=== PATIENT | male | born 1990 | race Caucasian/White ===

== ENCOUNTER 2016-07-04 15:40 | Emergency (ER) | payer SELFPAY ==
[2016-07-04 15:50] VITALS: BMI 22.3
--- NOTE | 2016-07-04 16:32 | EDPRACDOC ---
- General Chief Complaint: Fall Stated Complaint: LACERATION Time Seen by Provider: 07/04/16 16:06 Information Source: Patient - History of Present Illness Onset: 2 days HPI: PT PRESENTS TODAY WITH LEFT CHEST WALL PAIN AND LEFT HIP PAIN AFTER MECHANICAL FALL 2 DAYS AGO. WAS PUTTING UP A SHELF AND FELL BACKWARDS OFF LADDER ABOUT 3 FEET. DENIES HEMOPTYSIS, CP, SHOB, ABD PAIN, N/V/D. STATES HE DID URINATE BLOOD ONCE, BUT NO BLOOD SINCE. NO APPARENT DISTRESS. Injuries/Pain Location: Reports: chest, pelvis Reason for Fall: Reports: slipped Loss of Consciousness: no loss of consciousness Modifying Factors: improves with: movement (WORSENS) Associated Symptoms (Fall): Reports: denies symptoms Allergies/Adverse Reactions: Allergies Penicillins Allergy (Verified 07/04/16 16:11) See Comments yeast infection Home Medications: Ambulatory Orders Meloxicam [Mobic] 7.5 mg PO BID #20 tab 07/04/16 ED Past Medical History - History Reviewed Yes Nurses notes reviewed and agree except as marked - Patient Medical History Psychological History: Denies: Depression - Social Medical History Smoking Status: Heavy tobacco smoker (5 or more cigarettes/day or daily pipe/ cigar) EDM Review of Systems - Review of Systems ROS Negative Except as Marked: Yes All systems reviewed and were negative except as marked Constitutional: No Symptoms Reported Respiratory: No Symptoms Reported Cardiovascular: No Symptoms Reported Gastrointestinal: No Symptoms Reported Genitourinary: Hematuria (RESOLVED) Neurological: No Symptoms Reported Musculoskeletal: Chestwall, Hip Integumentary: No Symptoms Reported - Physical Exam Constitutional: Alert (Awake), No apparent distress Oriented to: Time, Person, Place Last recorded Vital Signs: Last Vital Signs Temp Pulse 79 07/04/16 15:49 Resp 20 07/04/16 15:49 BP 128/79 07/04/16 15:49 Pulse Ox 98 07/04/16 15:49 Oxygen Pulse Oxygen Saturation 98 O2 Device Room Air Oxygen Flow Rate Fraction of Inspired Oxygen ( FIO2) - HEENT Head: Normal Eye Exam: Normal Neck: Normal, Denies Pain, Midline - Respiratory/Cardiovascular Respiratory: Normal - CTA, Other (STATES TTP ALONG LEFT LATERAL CHEST WALL; NO BRUISING/DEFORMITY/SWELLING NOTED;) Cardiovascular: Normal - GI Palpation: Normal Tenderness: Non tender - Musculoskeletal Back: Normal Extremities: Other (TTP TO LEFT HIP W/OUT BRUISING/SWELLING/DEFORMITY) - Integumentary Skin: Normal Lymphatics: Normal - Neurologic Cerebellar: Normal Mood Description: Normal Thought: Coherent Perception: Normal ED Injury/Fall Exam - Physical Exam Head Injury: no evidence of injury Extremity Exam: pelvis stable, pain with movement Skin: Normal - [place] Coma Score Best Eye Response (Jeanette): (4) open spontaneously Best Verbal Response ([place]): (5) oriented Best Motor Response (Jeanette): (6) obeys commands Jeanette Total: 15 Decision Time to Discharge: 16:54 - Departure Disposition: Home Condition: Good Final Diagnosis: Accidental fall Instructions: RICE Therapy (ED) Education/Counseling Given To: Patient Education/Counseling Given Regarding: Diagnosis, Treatment, Follow Up Referrals: None,No Provider [Primary Care Provider] - One Week Prescriptions: New Meloxicam [Mobic] 7.5 mg PO BID #20 tab Additional Instructions: HEATING PADS TO ACHY MUSCLES FOR ADDITIONAL RELIEF. IF SYMPTOMS PERSIST, FOLLOW UP WITH ORTHO.
--- NOTE | 2016-07-04 16:39 | DIRPT ---
CLINICAL DATA: PT STATES THAT HE FELL OFF A LADDER IN HIS DINING ROOM ONTO [place] FLOORS LAST SUNDAY. C/O LEFT HIP PAIN AND LEFT POSTERIOR AND LATERAL LOWER RIB PAIN. BB PLACED IN AREA OF RIB PAIN. PT STATES THAT RIB PAIN IS WORSE WITH DEEP RESPIRATIONS. CURRENT SMOKER EXAM: LEFT HIP (WITH PELVIS) 2-3 VIEWS COMPARISON: 04/28/2015 FINDINGS: No proximal femur or pelvic fracture. Hip joints, SI joints and symphysis pubis are normally spaced and aligned. Soft tissues are unremarkable. IMPRESSION: Negative. Electronically Signed By: Rosales Ramírez M.D. On: 07/04/2016 16:37
--- NOTE | 2016-07-04 16:45 | DIRPT ---
CLINICAL DATA: Patient status post fall from ladder onto heart with floors. Left hip pain. Left lower rib pain. EXAM: LEFT RIBS AND CHEST - 3+ VIEW COMPARISON: None. FINDINGS: Normal cardiac and mediastinal contours. Lungs are clear. No pleural effusion or pneumothorax. No evidence for displaced left lower rib fracture. IMPRESSION: No acute cardiopulmonary process. No evidence for left lower lateral displaced rib fracture. Electronically Signed By: Michael Raymundo M.D. On: 07/04/2016 16:42
[2016-07-04] MEDS ORDERED: KETOROLAC TROMETHAMINE 10 MG TAB PO ONE (16:58)
[2016-07-04 17:00] VITALS: BP 123/66; PULSE 64
== END 2016-07-04 17:09 | disposition home or self-care (01) ==
LOC: ED 15:40 → EDMC 17:09
DX: R07.89 Other chest pain (principal); M25.552 Pain in left hip; W11.XXXA Fall on and from ladder, initial encounter; F17.200 Nicotine dependence, unspecified, uncomplicated
CPT/HCPCS: 71101; 73502; 99283; J3490